=== PATIENT | female | born 1950 | race Caucasian/White ===

== ENCOUNTER 2016-10-04 23:53 | Emergency (ER) | payer MEDICARE, OTHER ==
[2016-10-05 00:41] LABS: BASOPHILS 0.4 %; BASOPHILS ABSOLUTE 0.03 10/3/uL (0.0-0.16); EOSINOPHILS 3.7 %; EOSINOPHILS ABSOLUTE 0.31 10/3/uL (0.0-0.53); ER CBC TAT 0 Hrs 05 Mins; HEMATOCRIT 38.5 % (36.0-48.0); HEMOGLOBIN 13.5 g/dL (12.0-16.0); IMMATURE GRANULOCYTES 0.5 %; IMMATURE GRANULOCYTES ABSOLUTE 0.04 10/3/uL (0.0-0.11); LYMPHOCYTES 41.2 %; LYMPHOCYTES ABSOLUTE 3.43 10/3/uL (0.67-4.30); MANUAL DIFF NO %; MEAN CORPUS HGB CONC 35.1 g/dL (32.0-36.0); MEAN CORPUSCULAR HEMOGLOB 31.7 pg (26.0-34.0); MEAN CORPUSCULAR VOLUME 90.4 fL (80-100); MEAN PLATELET VOLUME 10.1 fL (9.2-13.0); MONOCYTES 6.3 %; MONOCYTES ABSOLUTE 0.52 10/3/uL (0.21-1.20); NEUTROPHILS 47.9 %; NEUTROPHILS ABSOLUTE 3.99 10/3/uL (2.02-8.40); PLATELET COUNT 238 10/3/uL (150-400); RBC DISTRIBUTION WIDTH 13.1 % (12.0-16.0); RED CELL COUNT 4.26 10/6/uL (4.0-5.6); WHITE BLOOD CELLS 8.3 10/3/uL (4.5-10.5)
[2016-10-05 00:45] LABS: INTERNATIONAL NORMAL RATI 0.9 UNITS (-); PROTIME (NOT ORD) 11.8 SEC (12.0-14.5)
[2016-10-05 00:46] LABS: PARTIAL THROMBO TIME 29.2 SEC (22.5-37.2)
[2016-10-05 00:58] LABS: BUN (BLOOD UREA NITROGEN) 16 MG/DL (6-23); CALCIUM, SERUM 9.1 MG/DL (8.5-10.4); CHEST PAIN PROFILE TAT 0 Hrs 22 Mins; CHLORIDE, SERUM 109 MMOL/L (96-112); CO2 (CARBON DIOXIDE) 29 MMOL/L (24-34); CREATININE 1.22 MG/DL (0.55-1.02); GFR AFRICAN AMERICAN 53 ML/MIN (>=60); GFR NON AFRICAN AMERICAN 46 ML/MIN (>=60); GLUCOSE, SERUM 126 MG/DL (60-99); POTASSIUM, SERUM 4.2 MMOL/L (3.5-5.3); SODIUM, SERUM 145 MMOL/L (135-148); TROPONIN I <0.02 NG/ML (<0.05)
[2016-10-05 03:37] LABS: ALBUMIN 3.9 G/DL (3.5-5.0); ALKALINE PHOSPHATASE 80 U/L (45-117); DIRECT BILIRUBIN < 0.1 MG/DL (0.0-0.4); INDIRECT BILIRUBIN(NOT ORDER) 0.1 MG/DL (0.1-0.9); SGOT(AST) 7 U/L (5-40); SGPT(ALT) 18 U/L (5-65); TOTAL BILIRUBIN 0.2 MG/DL (0-1.2); TROPONIN I <0.02 NG/ML (<0.05)
== END 2016-10-05 04:29 | disposition home or self-care (01) ==
LOC: ER 23:53
PROVIDERS: Emergency Medicine; Nurse Practitioner
DX: R07.9 Chest pain, unspecified (principal)
CPT/HCPCS: 71020; 80048; 80076; 83690; 83735; 84484; 85025; 85610; 85730; 93005; 99285; A9270-GY